=== PATIENT | male | born 1970 | race Caucasian/White ===

== ENCOUNTER → 2020-07-19 | Outpatient (CLI) | payer BC ==
[2020-07-19 11:27] LABS: African American GFR (CKD) >90 (>60 ml/min/1.73 sqM); Blood Urea Nitrogen 19 mg/dL (9-20); Non-African American GFR(CKD) >90 (>60 ml/min/1.73 sqM)
--- NOTE | 2020-07-19 12:34 | ECHOF ---
Referral Reason:I10 hypertension; E11.9 Diabetes MEASUREMENTS -------- HEIGHT: 182.9 cm WEIGHT: 102.5 kg BP: IVSd: 1.2 cm (0.6 - 1.1) LVIDd: 4.0 cm (3.9 - 5.3) LVPWd: 1.6 cm (0.6 - 1.1) IVSs: 1.5 cm LVIDs: 3.7 cm LVPWs: 1.1 cm LAESV Index (A-L): 24.44 ml/m Ao Diam: 3.6 cm (2.0 - 3.7) AV Cusp: 2.0 cm (1.5 - 2.6) MV EXCURSION: 21.020 mm (> 18.000) MV EF SLOPE: 121 mm/s (70 - 150) EPSS: 0.3 cm MV E Eduin: 0.68 m/s MV DecT: 167 ms MV A Eduin: 0.67 m/s MV E/A Ratio: 1.02 RAP: 5.00 mmHg RVSP: 13.32 mmHg FINDINGS -------- Sinus rhythm. This was a technically good study. The left ventricular size is normal. There is borderline concentric left ventricular hypertrophy. Overall left ventricular systolic function is normal with, an EF between 55 - 60 %. The right ventricle is normal in size. Normal LA size by volume 22+/-6 ml/m2. The right atrial size is normal. The aortic valve is trileaflet, and appears structurally normal. No aortic stenosis or regurgitation. The mitral valve is normal. Mild mitral regurgitation is present. The tricuspid valve appears structurally normal. Mild tricuspid regurgitation present. Right vent ricular systolic pressure is normal at < 35 mmHg. There is no pulmonic regurgitation present. The aortic root size is normal. There is no pericardial effusion. CONCLUSIONS -------- 1. There is borderline concentric left ventricular hypertrophy. 2. Overall left ventricular systolic function is normal with, an EF between 55 - 60 %. 3. Normal LA size by volume 22+/-6 ml/m2. 4. The aortic valve is trileaflet, and appears structurally normal. No aortic stenosis or regurgitati on. 5. Mild mitral regurgitation is present. 6. Mild tricuspid regurgitation present. 7. There is no pericardial effusion. DATA COMMUNICATIONS ANALYST: Lucrecia Caceres RDCS
--- NOTE | 2020-07-19 21:21 | CT ---
EXAMINATION TYPE: CT abdomen w con DATE OF EXAM: 07/19/2020 COMPARISON: None INDICATION: Elevated LFTs DLP: 1167.3 mGycm, Automated exposure control for dose reduction was used. CONTRAST: 100 mL of Isovue 300. Study performed with Oral Contrast TECHNIQUE: Axial images were obtained from above the diaphragm to the pubic rami in the axial plane a t 5 mm thick sections. Reconstructed images are reviewed on the computer in the coronal plane. FINDINGS: Limited CT sections are obtained the lung bases. The lung bases are clear. CT ABDOMEN: Liver: Moderate fatty infiltration is the liver. Some focal spurring is at the inferior right tip of the liver as well as adjacent to the gallbladder bed fossa. Spleen: Normal Pancreas: Normal Adrenal glands: The adrenal glands are normal. Gallbladder: Normal Kidneys: No masses are evident. No hydronephrosis is present. No cysts are present. Delayed images were obtained through the kidneys, which remain unremarkable. Aorta: Vascular calcification is within the aorta. Inferior vena cava: Normal. CT PELVIS: Loops of bowel within the abdomen and pelvis are normal. There are loops of bowel which are incom pletely distended or lack oral contrast limiting their evaluation. Appendix: There is a single image which may visualize the appendix which measures 0.9 cm which may be prominent. Normal less than 0.7 cm. Clinical management of any suspected appendicitis will be requir ed. IMPRESSIONS: 1. Moderate fatty infiltration liver. 2. Clinical management of any suspected appendicitis
== END | disposition home or self-care (01) ==
LOC: RADECHMAIN 10:32
PROVIDERS: ATTEND Family Medicine
DX: I08.1 Rheumatic disorders of both mitral and tricuspid valves (principal); K76.0 Fatty (change of) liver, not elsewhere classified; E11.9 Type 2 diabetes mellitus without complications; E78.5 Hyperlipidemia, unspecified
CPT/HCPCS: 93306; 82565; 84520; 74160; 36415; Q9967

== ENCOUNTER → 2020-07-21 | Outpatient (CLI) | payer BC ==
--- NOTE | 2020-07-21 17:13 | CT ---
EXAMINATION TYPE: CT foot LT wo con DATE OF EXAM: 07/21/2020 COMPARISON: HISTORY: Left foot pain after injury CT DLP: 189.1 mGycm Automated exposure control for dose reduction was used. Images were obtained from the distal tibia to the bottom of the foot without contrast. There is 15 x 7 mm chip fracture of the posterior malleolus. There is 2 mm displacement. There is no dislocation. Ankle mortise is anatomic. There are plantar and Achilles calcaneal spurs. Talus is inta ct. Metatarsals are intact. The toes appear intact. There is soft tissue swelling of the forefoot. IMPRESSION: Intra-articular posterior malleolus chip fracture with minimal displacement. Soft tissue swelling.
== END | disposition home or self-care (01) ==
LOC: RADCTMAIN 15:29
PROVIDERS: ATTEND Orthopaedic Surgery
DX: M25.572 Pain in left ankle and joints of left foot (principal); S93.432D Sprain of tibiofibular ligament of left ankle, subsequent encounter; S93.422D Sprain of deltoid ligament of left ankle, subsequent encounter; M25.562 Pain in left knee; M79.672 Pain in left foot; S93.602D Unspecified sprain of left foot, subsequent encounter; S92.025D Nondisplaced fracture of anterior process of left calcaneus, subsequent encounter for fracture with routine healing; M79.89 Other specified soft tissue disorders

== ENCOUNTER → 2020-08-18 | Outpatient (CLI) | payer BC ==
--- NOTE | 2020-08-18 11:16 | US ---
EXAMINATION TYPE: US venous doppler duplex LE LT DATE OF EXAM: 08/18/2020 11:06 AM COMPARISON: NONE CLINICAL HISTORY: I80.9Phlebitis and thrombophlebitis of unspecified. Left foot/ankle swelling SIDE PERFORMED: Left TECHNIQUE: The lower extremity deep venous system is examined utilizing real time linear array sonog norman with graded compression, doppler sonography and color-flow sonography. VESSELS IMAGED: Common Femoral Vein Deep Femoral Vein Greater Saphenous Vein * Femoral Vein Popliteal Vein Small Saphenous Vein * Proximal Calf Veins (* superficial vessels) Left Leg: Negative for DVT Results called to Sally at Dr's. office at time of exam Grayscale, color doppler, spectral doppler imaging performed of the deep veins of the left lower extr emity. There is normal flow, compressibility, vascular waveforms. IMPRESSION: No ultrasound evidence for acute DVT in the left lower extremity.
== END | disposition home or self-care (01) ==
LOC: RADUSWWP 10:52
PROVIDERS: ATTEND Orthopaedic Surgery
DX: I80.3 Phlebitis and thrombophlebitis of lower extremities, unspecified (principal)